=== PATIENT | female | born 1955 | race Caucasian/White ===

== ENCOUNTER → 2018-04-20 | Outpatient (CLI) | payer OTHER ==
--- NOTE | 2018-04-20 16:42 | RAD ---
DATE: 04/20/2018 EXAM: DIGITAL SCREEN BILAT W/CAD HISTORY: Routine screening COMPARISON: 11/14/2015 This study was interpreted with the benefit of Computerized Aided Detection (CAD). Breast Density: FATTY The breast parenchyma is primarily fatty replaced. Breast parenchyma level density A. FINDINGS: No new or enlarging breast densities are seen. Benign type calcifications are again noted. No suspicious microcalcifications have developed. IMPRESSION: Stable mammograms without evidence of malignancy. BI-RADS CATEGORY: 2 BENIGN FINDING(S) RECOMMENDED FOLLOW-UP: 12M 12 MONTH FOLLOW-UP PQRS compliance statement: Patient information was entered into a reminder system with a target due date for the next mammogram. Mammography is a sensitive method for finding small breast cancers, but it does not detect them all and is not a substitute for careful clinical examination. A negative mammogram does not negate a clinically suspicious finding and should not result in delay in biopsying a clinically suspicious abnormality. "Our facility is accredited by the [employer] Mammography Program."
== END | disposition home or self-care (01) ==
LOC: MAMMO 14:43
DX: Z12.31 Encounter for screening mammogram for malignant neoplasm of breast (principal)
CPT/HCPCS: 77067

== ENCOUNTER → 2019-06-16 | Outpatient (CLI) | payer OTHER ==
--- NOTE | 2019-06-16 16:39 | RAD ---
CHEST PA LATERAL History: Persistent cough Comparison: None. Findings: Frontal and lateral views of the chest were obtained. The cardiomediastinal silhouette is normal. Pulmonary vasculature is normal. The lungs are clear. No pleural effusion or pneumothorax is seen. There is no acute bone abnormality. IMPRESSION: No acute cardiopulmonary process. Electronically signed by: Orlin Reinoso MD (06/16/2019 4:36 PM) [facility]
== END | disposition home or self-care (01) ==
LOC: DXRAD 14:50
PROVIDERS: ATTEND Nurse Practitioner Family
DX: R05 Cough (principal)
CPT/HCPCS: 71046

== ENCOUNTER → 2020-09-18 | Outpatient (CLI) | payer BC | LOC: MAMMO 15:06 | PROVIDERS: ATTEND Physician Assistant | DX: Z12.31 Encounter for screening mammogram for malignant neoplasm of breast (principal) | CPT/HCPCS: 77067 ==

== ENCOUNTER → 2020-10-05 | Outpatient (CLI) | payer BC ==
--- NOTE | 2020-10-05 15:29 | RAD ---
US PELVIS W/TV History: Postmenopausal bleeding Comparison: None. Technique: Sonographic examination of the pelvis was performed with transabdominal and transvaginal t echnique. Findings: Uterus- Size: 16.4 x 8.3 x 9.8 cm. Uterine parenchyma: Enlarged uterus with heterogeneous echotexture. Cervix: 4.8 x 2.7 x 3.2 cm heterogeneous solid mass at the cervix. Adjacent small benign [facility]. The Endometrium- Endometrial Stripe: Abnormally thickened and heterogeneous with internal color Doppler flow. Thickness: 4.3 cm. Adnexa- Ovaries are not visualized. No adnexal masses seen. Fluid: No abnormal free fluid in the pelvis. Additional findings: None. Impression: 1. Heterogeneous cervical-lower uterine segment mass measuring 4.8 cm diameter concerning for malign loree. Recommend gynecology-oncology consultation. 2. Thickened 4.3 cm endometrial stripe also concerning for malignancy. Alternatively this may be due cervical canal obstruction. Electronically signed by: Sarmad Small MD (10/05/2020 3:26 PM) [facility]
== END ==
LOC: US 12:00
PROVIDERS: ATTEND Physician Assistant
DX: N95.0 Postmenopausal bleeding (principal); N88.8 Other specified noninflammatory disorders of cervix uteri
CPT/HCPCS: 76830; 76856

== ENCOUNTER 2021-08-03 15:13 | Emergency (ER) | payer MEDICARE, BC ==
[~2021-08-03] VITALS: Ht 160 cm; Wt 108.7 kg
[2021-08-03 17:50] VITALS: BP 182/90
--- NOTE | 2021-08-03 18:17 | PHYS DOC ---
Past History Past Surgical History: No Surgical History Alcohol Use: None Adult General Chief Complaint Chief Complaint: HYPERTENSION HPI HPI Patient is a 65 year old female who presents with elevated blood pressure. She reports that she took her losartan later than usual today, then checked her blood pressure and it was elevated. She also takes hydrochlorothiazide. States she is generally compliant with medication regimen & has not run out or missed doses. Denies headache, chest pain, dyspnea, edema, extremity numbness/weakness. She denies any symptoms at this time. Review of Systems Review of Systems Constitutional: Denies fever or chills Eyes: Denies change in visual acuity HENT: Denies nasal congestion or sore throat Respiratory: Denies cough or shortness of breath Cardiovascular: Denies chest pain or edema. GI: Denies abdominal pain, nausea, vomiting Musculoskeletal: Denies back pain or joint pain Integument: Denies rash or skin lesions Neurologic: Denies headache, focal weakness or sensory changes All other systems were reviewed and found to be within normal limits, except as documented in this note. Physical Exam Physical Exam Constitutional: Well developed, well nourished, no acute distress, non-toxic appearance. HENT: Normocephalic, atraumatic, bilateral external ears normal, oropharynx moist, no oral exudates, nose normal. Eyes: PERRLA, EOMI, conjunctiva normal, no discharge. Neck: no meningismus Cardiovascular: Regular rate and rhythm, no murmurs, no edema. Lungs & Thorax: Lungs clear to auscultation bilaterally, no wheezing, no respiratory distress. Abdomen: nondistended Skin: Warm, dry, no erythema, no rash. Back: No deformity Extremities: No tenderness, no edema. Neurologic: Alert and oriented X 3, cranial nerves 2-12 grossly intact, symmetric strength/sensation to upper & lower extremities. Psychologic: Affect normal, judgement normal, mood normal. Current Patient Data Vital Signs Vital Signs Date Time Temp Pulse Resp B/P (MAP) Pulse Ox O2 Delivery O2 Flow Rate FiO2 08/03/21 17:50 182/90 (120) 08/03/21 16:11 98.0 92 20 96 Room Air EKG EKG [] Radiology/Procedures Radiology/Procedures [] Heart Score C/O Chest Pain: No Risk Factors: Risk Factors: DM, Current or recent (<one month) smoker, HTN, HLP, family history of CAD, obesity. Risk Scores: Risk Factors: DM, Current or recent (<one month) smoker, HTN, HLP, family history of CAD, obesity. Course & Med Decision Making Course & Med Decision Making Pertinent Labs and Imaging studies reviewed. (See chart for details) Patient with asymptomatic hypertension. Monitored blood pressure which went down with observation. Discussed with patient. 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 At this time no evidence of hypertensive emergency. Recommend monitor BP at home without adding significant stress, take meds as prescribed, follow up with PCP this week for recheck & reassessment of medication regimen. Return to ED for severe/sudden headache, confusion, vision changes, focal neuro deficit, chest pain, shortness of breath, any otherwise worsening condition. Discharged home in improved condition. [] Dragon Disclaimer Dragon Disclaimer This electronic medical record was generated, in whole or in part, using a voice recognition dictation system. Departure Departure: Impression: Primary Impression: Hypertension Disposition: HOME / SELF CARE / HOMELESS Condition: IMPROVED Referrals: MAYCOL MATTHEWS (PCP) Patient Instructions: Hypertension, [id number] Additional Instructions: You were seen in the emergency department today for high blood pressure. Your blood pressure did improve with rest and observation here. Based on your symptoms, an extensive work-up was not recommended. We discussed the potential harms of aggressively treating high blood pressure as that can sometimes lead to low blood pressure which is also problematic. It is okay to go home. We recommend monitoring your blood pressure at home. Be sure to take medication as prescribed daily, okay to monitor blood pressure around the same time every day. Follow-up with primary care physician in 2 to 3 days for recheck and to discuss long-term control. Return to the emergency department for severe headac he, vision changes, chest pain, shortness of breath, numbness or weakness in arms or legs, any otherwise worsening condition. ARTURO HART MD Aug 03, 2021 18:16
== END 2021-08-03 18:34 | disposition home or self-care (01) ==
LOC: ER 15:13
DX: I10 Essential (primary) hypertension (principal)
CPT/HCPCS: 99281